=== PATIENT | male | born 1975 | race Two or more races ===

== ENCOUNTER 2020-07-11 05:56 | Emergency (ER) | payer MEDICAID ==
[~2020-07-11] VITALS: Ht 180.3 cm; Wt 102.0 kg
[2020-07-11 06:45] VITALS: BP 142/79
== END 2020-07-11 07:15 | disposition home or self-care (01) ==
LOC: EMS 05:56
DX: R23.8 Other skin changes (principal); M79.672 Pain in left foot; F19.90 Other psychoactive substance use, unspecified, uncomplicated
CPT/HCPCS: 99283; Z7502